=== PATIENT | female | born 1990 | race Hispanic/Latino ===

== ENCOUNTER 2023-09-01 00:23 | Emergency (ER) | payer OTHER ==
[~2023-09-01] VITALS: Ht 162.6 cm; Wt 49.9 kg
[2023-09-01] MEDS: HYDROXYZINE 50MG VIAL 50 MG/ML VIAL IM SCH (01:46)
[2023-09-01 01:53] LABS: APPEARANCE,URINE CLOUDY (CLEAR); BILIRUBIN,URINE NEGATIVE (NEGATIVE); COLOR,URINE YELLOW (YELLOW); GLUCOSE, URINE (UA) NEGATIVE (NEGATIVE); KETONES,URINE 10 mg/dL (NEGATIVE); LEUKOCYTE ESTERASE ,URINE 250 Leu/uL (NEGATIVE); NITRATE,URINE NEGATIVE (NEGATIVE); OCCULT BLOOD,URINE NEGATIVE (NEGATIVE); PH,URINE 5.5 (5.0-8.0); PROTEIN,URINE 20 mg/dL (NEGATIVE); UROBILINOGEN,URINE 0.2 mg/dL (0.2-1.0)
[2023-09-01 01:56] LABS: ADD UA MICROSCOPIC YES
[2023-09-01 02:00] LABS: MUCUS,URINE FEW LPF (None Seen); SQUAMOUS EPITHELIAL CELL,UR FEW /HPF (0-2)
[2023-09-01 02:01] LABS: AMPHET/METH SCREEN,URINE POSITIVE (NEGATIVE); BARBITURATE SCREEN, URINE NEGATIVE (NEGATIVE); BENZODIAZEPINES SCREEN,URINE NEGATIVE (NEGATIVE); CANNABINOID SCREEN,URINE POSITIVE (NEGATIVE); COCAINE SCREEN,URINE POSITIVE (NEGATIVE); OPIATE SCREEN,URINE NEGATIVE (NEGATIVE); PHENCYCLIDINE SCREEN,URINE NEGATIVE (NEGATIVE)
[2023-09-01 02:13] LABS: BACTERIA,URINE Rare /HPF (None Seen)
[2023-09-01] MEDS ORDERED: 0.9%NACL 1000ML 1,000 ML IV ONE (02:30)
[2023-09-01] MEDS ORDERED: MACR100 PO (02:33)
[2023-09-01] MEDS: CEFTRIAXONE 1G VIAL IM ONE (02:48)
[2023-09-01 06:12] VITALS: BP 114/72; PULSE 68; RESP 14; O2SAT 99
== END 2023-09-01 06:23 | disposition home or self-care (01) ==
LOC: EDH 00:23
DX: N39.0 Urinary tract infection, site not specified (principal); F41.9 Anxiety disorder, unspecified; F32.A Depression, unspecified; Z79.899 Other long term (current) drug therapy
CPT/HCPCS: 99284; 80305; 87086; 81001; 96372 ×2; J3410; J0696